=== PATIENT | male | born 1945 | race Caucasian/White ===

== ENCOUNTER 2016-09-04 | Outpatient (CLI) | payer MEDICARE, MEDICAID | END 2016-09-04 09:50 | disposition critical access hospital (66) | CPT/HCPCS: A0425; A0427 ==

== ENCOUNTER 2016-09-04 10:06 | Emergency (ER) | payer MEDICARE, MEDICAID ==
[2016-09-04] MEDS ORDERED: oxyCODONE 5 MG TABLET PO STA (10:13)
[2016-09-04] MEDS ORDERED: oxyCODONE 5 MG TABLET ONE (10:19)
== END 2016-09-04 14:23 | disposition home or self-care (01) ==
DX: M25.571 Pain in right ankle and joints of right foot (principal); M1A.0711 Idiopathic chronic gout, right ankle and foot, with tophus (tophi); E11.9 Type 2 diabetes mellitus without complications; I10 Essential (primary) hypertension; F17.200 Nicotine dependence, unspecified, uncomplicated; Z79.82 Long term (current) use of aspirin; Z66 Do not resuscitate
CPT/HCPCS: 73610; 73630; 93971; 99283; A9270

== ENCOUNTER 2016-09-09 | Outpatient (CLI) | payer MEDICARE, MEDICAID | END 2016-09-09 14:04 | disposition critical access hospital (66) | CPT/HCPCS: A0425; A0429 ==

== ENCOUNTER 2016-09-09 14:21 | Inpatient (IN) | payer MEDICARE, MEDICAID ==
[2016-09-09] MEDS ORDERED: FUROSEMIDE 20 MG/2 ML VIAL IVP STA (14:46)
[2016-09-09] MEDS ORDERED: FUROSEMIDE 20 MG/2 ML VIAL IVP ONE (15:07)
[2016-09-09] MEDS ORDERED: LORazepam 2 MG/ML SYRINGE IVP STA (15:58)
[2016-09-09] MEDS ORDERED: LORazepam 2 MG/ML SYRINGE ONE (16:06)
[2016-09-09] MEDS ORDERED: ONDANSETRON ODT 4 MG TABLET TL PRN (16:48)
[2016-09-09] MEDS ORDERED: ACETAMINOPHEN 500 MG TABLET PO PRN (16:48)
[2016-09-09] MEDS ORDERED: oxyCODONE 5 MG TABLET PO SCH (17:00)
[2016-09-09] MEDS: SODIUM CHLORIDE 0.9% 1,000 ML IV SCH (17:48)
[2016-09-09] MEDS: SODIUM CHLORIDE FLUSH 0.9% 10 ML SYRINGE IVP SCH (17:51)
[2016-09-09] MEDS: PANTOPRAZOLE 40 MG VIAL IVP SCH (18:03)
[2016-09-09] MEDS ORDERED: SODIUM CHLORIDE INHALATION 3 ML NEB INH PRN (18:36)
[2016-09-09] MEDS ORDERED: traMADol 50 MG TABLET PO SCH (21:00)
[2016-09-09] MEDS ORDERED: LEVALBUTEROL 1.25 MG INH PRN (21:19)
[2016-09-09] MEDS ORDERED: LEVALBUTEROL 1.25 MG INH SCH (22:00)
[2016-09-09] MEDS ORDERED: LORazepam 0.5 MG TABLET PO SCH (22:00)
[2016-09-09] MEDS: TOLTERODINE LA 2 MG CAPSULE PO SCH (22:24)
[2016-09-09] MEDS: cloNIDine 0.1 MG TABLET PO SCH (22:24)
[2016-09-09] MEDS: HYDROcod/ACETAM 5/325 MG TABLET PO SCH (22:25)
[2016-09-10] MEDS ORDERED: SODIUM CHLORIDE 0.9% 250 ML IV ONE (00:25)
[2016-09-10] MEDS: oxyCODONE 5 MG TABLET PO PRN ×2 (00:30→16:29)
[2016-09-10] MEDS: SODIUM CHLORIDE FLUSH 0.9% 10 ML SYRINGE IVP SCH ×3 (06:11→22:39)
[2016-09-10] MEDS: PANTOPRAZOLE 40 MG VIAL IVP SCH ×2 (06:22→16:29)
[2016-09-10] MEDS: HYDROmorphone 1 MG/ML SYRINGE IVP PRN ×4 (06:22→23:00)
[2016-09-10] MEDS: SODIUM CHLORIDE FLUSH 0.9% 10 ML SYRINGE IVP PRN ×4 (06:22→23:02)
[2016-09-10] MEDS: HYDROcod/ACETAM 5/325 MG TABLET PO SCH ×3 (08:22→22:34)
[2016-09-10] MEDS: POLYETHYLENE GLYCOL 3350 17 GM PACKET PO SCH ×2 (08:24→08:34)
[2016-09-10] MEDS: cloNIDine 0.1 MG TABLET PO SCH ×3 (08:25→22:34)
[2016-09-10] MEDS ORDERED: METOPROLOL TARTRATE 50 MG TABLET PO SCH (09:00)
[2016-09-10] MEDS ORDERED: POTASSIUM CHLORIDE 10 MEQ CAPSULE PO SCH (09:00)
[2016-09-10] MEDS ORDERED: CITALOPRAM 10 MG TABLET PO SCH (09:00)
[2016-09-10] MEDS: SODIUM CHLORIDE 0.9% 1,000 ML IV SCH ×2 (10:01→22:34)
[2016-09-10] MEDS: SUCRALFATE 1 GM/10 ML UDC PO SCH ×2 (16:29→22:34)
[2016-09-10] MEDS ORDERED: BISACODYL 10 MG SUPP PR ONE ×2 (17:41→21:09)
[2016-09-10] MEDS: TOLTERODINE LA 2 MG CAPSULE PO SCH ×2 (21:32→22:35)
[2016-09-11] MEDS: HYDROmorphone 1 MG/ML SYRINGE IVP PRN ×2 (01:09→04:08)
[2016-09-11] MEDS ORDERED: HEPARIN 5,000 UNIT/ML VIAL IVP ONE (02:01)
[2016-09-11] MEDS ORDERED: HEPARIN 25,000 UNITS/500 ML 500 ML IV STA (02:01)
[2016-09-11] MEDS ORDERED: HEPARIN 5,000 UNIT/ML VIAL IVP SCH (02:30)
[2016-09-11] MEDS ORDERED: HEPARIN 25,000 UNITS/500 ML 500 ML IV SCH ×2 (03:00)
== END 2016-09-11 04:20 | disposition short-term general hospital (02) | DRG 812 ==
PROC: 30233N1 Transfusion of Nonautologous Red Blood Cells into Peripheral Vein, Percutaneous Approach (ICD-10-PCS; principal; 2016-09-09)
PROC: 30233N1 Transfusion of Nonautologous Red Blood Cells into Peripheral Vein, Percutaneous Approach (ICD-10-PCS; 2016-09-10)
DX: D50.0 Iron deficiency anemia secondary to blood loss (chronic) (principal); K92.2 Gastrointestinal hemorrhage, unspecified; E87.1 Hypo-osmolality and hyponatremia; N17.9 Acute kidney failure, unspecified; I11.0 Hypertensive heart disease with heart failure; I50.9 Heart failure, unspecified; F32.9 Major depressive disorder, single episode, unspecified; I77.9 Disorder of arteries and arterioles, unspecified; I83.019 Varicose veins of right lower extremity with ulcer of unspecified site; L97.919 Non-pressure chronic ulcer of unspecified part of right lower leg with unspecified severity; I87.2 Venous insufficiency (chronic) (peripheral); I10 Essential (primary) hypertension; E66.01 Morbid (severe) obesity due to excess calories; F17.210 Nicotine dependence, cigarettes, uncomplicated; E11.9 Type 2 diabetes mellitus without complications; Z79.82 Long term (current) use of aspirin; Z68.41 Body mass index [BMI] 40.0-44.9, adult; J44.9 Chronic obstructive pulmonary disease, unspecified; E78.5 Hyperlipidemia, unspecified; M10.9 Gout, unspecified; Z66 Do not resuscitate

== ENCOUNTER 2016-09-18 | Outpatient (CLI) | payer MEDICARE, MEDICAID | END 2016-09-18 11:04 | disposition short-term general hospital (02) | CPT/HCPCS: A0425; A0429; A0888 ==

== ENCOUNTER 2020-12-09 07:00 | Outpatient (CLI) | payer MEDICARE, MEDICAID ==
[2020-12-09 15:26] LABS: BASOPHILS # (AUTO) 0.1 10^3/uL (0.0-0.1); BASOPHILS % (AUTO) 0.9 %; EOSINOPHILS # (AUTO) 0.3 10^3/uL (0.0-0.7); HCT - HEMATOCRIT 46.6 % (42.0-52.0); LYMPHOCYTES # (AUTO) 1.7 10^3/uL (1.5-3.5); LYMPHOCYTES % (AUTO) 31.8 %; MEAN CORPUSCULAR HEMOGLOBIN 30.7 pg (27.0-31.0); MEAN CORPUSCULAR HGB CONC 32.2 g/dL (32.0-36.0); MEAN CORPUSCULAR VOLUME 95.5 fL (80.0-94.0); MEAN PLATELET VOLUME 12.2 fL (7.4-11.4); MONOCYTES # (AUTO) 0.4 10^3/uL (0.0-1.0); NEUTROPHILS # (AUTO) 2.8 10^3/uL (1.5-6.6); NEUTROPHILS % (AUTO) 53.1 %; PLT - PLATELET COUNT 251 10^3/uL (130-450); RED BLOOD COUNT 4.88 10^6/uL (4.70-6.10); RED CELL DISTRIBUTION WIDTH 13.9 % (12.0-15.0); WHITE BLOOD COUNT 5.4 x10^3/uL (4.8-10.8)
[2020-12-09 15:45] LABS: CALCIUM 9.7 mg/dL (8.5-10.3); CREATININE 0.7 mg/dL (0.6-1.2); POTASSIUM 3.3 mmol/L (3.5-5.0)
== END 2020-12-09 23:59 | disposition home or self-care (01) ==
LOC: LAB.R 07:00
DX: I10 Essential (primary) hypertension (principal); E78.49 Other hyperlipidemia; F32.9 Major depressive disorder, single episode, unspecified; D50.8 Other iron deficiency anemias
CPT/HCPCS: 80048; 85025

== ENCOUNTER 2021-01-15 14:41 | Outpatient (CLI) | payer MEDICARE, MEDICAID ==
[2021-01-15 15:02] LABS: CALCIUM 9.2 mg/dL (8.5-10.3); CREATININE 0.7 mg/dL (0.6-1.2); POTASSIUM 3.5 mmol/L (3.5-5.0)
== END 2021-01-15 14:42 | disposition home or self-care (01) ==
LOC: LAB.R 14:41
PROVIDERS: ATTEND Family Medicine
DX: E78.49 Other hyperlipidemia (principal); D50.8 Other iron deficiency anemias; E87.6 Hypokalemia
CPT/HCPCS: 80048

== ENCOUNTER → 2021-05-20 | Outpatient (CLI) | payer MEDICARE, MEDICAID ==
[2021-05-20 15:44] LABS: BASOPHILS # (AUTO) 0.1 10^3/uL (0.0-0.1); BASOPHILS % (AUTO) 1.1 %; EOSINOPHILS # (AUTO) 0.4 10^3/uL (0.0-0.7); EOSINOPHILS % (AUTO) 7.8 %; HCT - HEMATOCRIT 43.5 % (42.0-52.0); HGB - HEMOGLOBIN 13.8 g/dL (14.0-18.0); LYMPHOCYTES # (AUTO) 1.6 10^3/uL (1.5-3.5); LYMPHOCYTES % (AUTO) 28.9 %; MEAN CORPUSCULAR HEMOGLOBIN 30.1 pg (27.0-31.0); MEAN CORPUSCULAR HGB CONC 31.7 g/dL (32.0-36.0); MEAN CORPUSCULAR VOLUME 94.8 fL (80.0-94.0); MEAN PLATELET VOLUME 11.8 fL (7.4-11.4); MONOCYTES # (AUTO) 0.5 10^3/uL (0.0-1.0); MONOCYTES % (AUTO) 8.3 %; NEUTROPHILS % (AUTO) 53.7 %; PLT - PLATELET COUNT 223 10^3/uL (130-450); RED BLOOD COUNT 4.59 10^6/uL (4.70-6.10); RED CELL DISTRIBUTION WIDTH 13.5 % (12.0-15.0); WHITE BLOOD COUNT 5.6 x10^3/uL (4.8-10.8)
[2021-05-20 15:46] LABS: BILIRUBIN,URINE NEGATIVE (NEGATIVE); GLUCOSE, URINE (UA) NEGATIVE (NEGATIVE); KETONES,URINE (UA) NEGATIVE (NEGATIVE); LEUKOCYTE ESTERASE, URINE NEGATIVE (NEGATIVE); NITRITE,URINE NEGATIVE (NEGATIVE); OCCULT BLOOD,URINE NEGATIVE (NEGATIVE); PROTEIN,URINE NEGATIVE (NEGATIVE); UROBILINOGEN,URINE 0.2 (NORMAL) E.U./dL (NORMAL)
[2021-05-20 15:49] LABS: CLARITY,URINE CLEAR (CLEAR)
[2021-05-20 15:59] LABS: ALBUMIN 3.9 g/dL (3.2-5.5); ALBUMIN/GLOBULIN RATIO 1.4 (1.0-2.2); BILIRUBIN,TOTAL 0.4 mg/dL (0.2-1.0); CALCIUM 8.6 mg/dL (8.5-10.3); CREATININE 0.8 mg/dL (0.6-1.2); POTASSIUM 3.7 mmol/L (3.5-5.0); TOTAL PROTEIN 6.6 g/dL (6.7-8.2)
== END ==
LOC: LAB.R 07:00
PROVIDERS: ATTEND Family Medicine
DX: E87.6 Hypokalemia (principal); E78.49 Other hyperlipidemia; R56.9 Unspecified convulsions; D50.8 Other iron deficiency anemias; I10 Essential (primary) hypertension; N12 Tubulo-interstitial nephritis, not specified as acute or chronic
CPT/HCPCS: 80053; 81001; 81003; 85025; 87086

== ENCOUNTER 2022-03-12 09:53 | Outpatient (CLI) | payer MEDICARE, MEDICAID | END 2022-03-12 09:54 | disposition critical access hospital (66) | LOC: EMS 09:53 | DX: R29.810 Facial weakness (principal); R40.4 Transient alteration of awareness | CPT/HCPCS: A0425; A0427 ==

== ENCOUNTER 2022-03-12 09:59 | Inpatient (IN) | payer MEDICARE, MEDICAID ==
[2022-03-12 10:15] LABS: BASOPHILS # (AUTO) 0.1 10^3/uL (0.0-0.1); BASOPHILS % (AUTO) 0.6 %; EOSINOPHILS # (AUTO) 0.8 10^3/uL (0.0-0.7); EOSINOPHILS % (AUTO) 8.7 %; HCT - HEMATOCRIT 44.6 % (42.0-52.0); HGB - HEMOGLOBIN 13.9 g/dL (14.0-18.0); LYMPHOCYTES # (AUTO) 1.9 10^3/uL (1.5-3.5); LYMPHOCYTES % (AUTO) 20.4 %; MEAN CORPUSCULAR HEMOGLOBIN 29.7 pg (27.0-31.0); MEAN CORPUSCULAR HGB CONC 31.2 g/dL (32.0-36.0); MEAN CORPUSCULAR VOLUME 95.3 fL (80.0-94.0); MEAN PLATELET VOLUME 11.1 fL (7.4-11.4); MONOCYTES # (AUTO) 0.7 10^3/uL (0.0-1.0); MONOCYTES % (AUTO) 6.8 %; NEUTROPHILS # (AUTO) 5.9 10^3/uL (1.5-6.6); NEUTROPHILS % (AUTO) 62.8 %; PLT - PLATELET COUNT 305 10^3/uL (130-450); RED BLOOD COUNT 4.68 10^6/uL (4.70-6.10); RED CELL DISTRIBUTION WIDTH 13.5 % (12.0-15.0); WHITE BLOOD COUNT 9.5 x10^3/uL (4.8-10.8)
[2022-03-12 10:31] LABS: ALBUMIN 3.7 g/dL (3.2-5.5); BILIRUBIN,TOTAL 0.6 mg/dL (0.2-1.0); CALCIUM 9.8 mg/dL (8.5-10.3); CREATININE 1.9 mg/dL (0.6-1.2); MAGNESIUM 2.1 mg/dL (1.7-2.8); TOTAL PROTEIN 7.5 g/dL (6.7-8.2)
--- NOTE | 2022-03-12 10:38 | CT Report ---
PROCEDURE: CT brain without contrast INDICATIONS: Code stroke/altered/R sided weakness TECHNIQUE: Noncontrast 4.5 mm thick angled axial sections acquired from the foramen magnum to the vertex. For r adiation dose reduction, the following was used: automated exposure control, adjustment of mA and/or kV according to patient size. COMPARISON: None. FINDINGS: Image quality: Excellent. CSF spaces: Basal cisterns are patent. No extra-axial fluid collections. Ventricles are normal in size and shape. Brain: Cystic encephalomalacia and gliosis noted throughout the left MCA territory. Diffuse atrophy a nd chronic ischemic change noted as well. There is dense atherosclerotic vascular calcification invol ving the intradural vertebral arteries, particularly on the left as well as the cavernous segments of both internal carotid arteries. No acute hemorrhage or mass effect. Skull and face: Calvarium and visualized facial bones are intact, without suspicious lesions. Sinuses: Air-fluid level noted in the left maxillary sinus IMPRESSION: 1. Atrophy and chronic ischemic change without acute hemorrhage or mass effect. 2. 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 3. Air-fluid level left maxillary sinus could reflect acute sinusitis. Note: Critical results were discussed with patients physician in the ER at 9:36 AM AK time on 03/12/20 Reviewed by: Didier Tao MD on 03/12/2022 9:37 AM AKDT Approved by: Didier Tao MD on 03/12/2022 9:37 AM AKDT Station ID: [id number]
[2022-03-12 10:40] LABS: INR 1.1 (0.8-1.2); PT - PROTHROMBIN TIME 12.6 secs (9.9-12.6)
--- NOTE | 2022-03-12 10:47 | ED Physician Documentation ---
PD HPI ALTERED MENTAL STATUS - Stated complaint Stated Complaint: AMS - Chief complaint Chief Complaint: Neuro - History obtained from History obtained from: EMS - Additional information Additional information: Patient is a 76-year-old male with a previous stroke and bilateral BKA presenting for evaluation of altered mental status, possible code stroke. He was last seen at his normal around 9:00 this morning.Sometime thereafter, staff noted that he was not acting at his baseline and appeared to have new weakness. He normally will answer questions but nonsensically. He does have hemiparesis to the right. He was noted to have left-sided facial droop and new left arm weakness.Per EMS, blood sugar was 108. Patient resides at [facility] in [place]. History is limited. He is not reportedly on a blood thinner. He reportedly recently finished a course of antibiotics - EMS was told he was on it for gout. Review of Systems Unable to obtain: AMS PD PAST MEDICAL HISTORY - Past Medical History Cardiovascular: Hypertension, High cholesterol Respiratory: Pneumonia Endocrine/Autoimmune: Type 2 diabetes GI: None : None HEENT: None Psych: None Musculoskeletal: None Derm: None - Past Surgical History Past Surgical History: Yes General: Appendectomy Ortho: Other HEENT: Tonsil/Adenoidectomy - Present Medications Home Medications: Ambulatory Orders Medication Instructions Recorded Confirmed Citalopram [CeleXA] 20 mg PO QPM 10/02/15 09/09/16 LORazepam [Lorazepam] 0.5 mg PO DAILY PRN 10/02/15 09/09/16 Metoprolol Tartrate 50 mg PO DAILY 10/02/15 09/09/16 Solifenacin Succinate [Vesicare] 10 mg PO QPM 10/02/15 09/09/16 lisinopriL [Lisinopril] 40 mg PO DAILY 10/02/15 09/09/16 Acetaminophen [Tylenol Extra 500 mg PO QID PRN 08/10/16 09/09/16 Strength] Aspirin [Aspirin EC] 81 mg PO DAILY 08/10/16 09/09/16 Atorvastatin [Lipitor] 20 mg PO DAILY 08/10/16 09/09/16 Colchicine 0.6 mg PO TID PRN 08/10/16 09/09/16 Furosemide [Lasix] 60 mg PO DAILY 08/10/16 09/09/16 Omeprazole [PriLOSEC] 20 mg PO BID 08/10/16 09/09/16 Potassium Chloride 10 meq PO DAILY 08/10/16 09/09/16 allopurinoL [Allopurinol] 300 mg PO DAILY 08/10/16 09/09/16 Furosemide 60 mg PO DAILY@1400 09/09/16 09/09/16 Hydrocodone/Acetaminophen 1 each PO BID 09/09/16 09/09/16 [Hydrocodon-Acetaminophen 5-325] cloNIDine HCL [Clonidine HCl] 0.1 mg PO BID 09/09/16 09/09/16 metOLazone [Metolazone] 5 mg PO 0700,1200 09/09/16 09/09/16 oxyCODONE [Roxicodone] 5 mg PO Q4HR PRN 09/09/16 09/09/16 - Allergies Allergies/Adverse Reactions: Allergies Allergy/AdvReac Type Severity Reaction Status Date / Time gabapentin Allergy Unknown Verified 03/12/22 10:26 - Social History Does the pt smoke?: Yes Smoking Status: Current every day smoker Does the pt drink ETOH?: No Does the pt have substance abuse?: No - Immunizations Immunizations are current?: Yes - POLST Patient has POLST: No PD ED PE NORMAL - General General: Well developed/nourished, Other (No acute distress, appears older than stated age, opens eyes to verbal but not following commands or answering questions) - HEENT HEENT: Atraumatic, PERRL. No: Moist mucous membranes (Dry mucous membranes) - Neck Neck: No bony TTP - Cardiac Cardiac: RRR, No murmur, Strong equal pulses - Respiratory Respiratory: No respiratory distress, Other (Diminished breath sounds throughout) - Abdomen Abdomen: Normal bowel sounds, Soft, Non tender, Non distended - Extremities Extremities: Other (Bilateral BKA) - Neuro Neuro: Other (Alert, mumbles, not following commands, Weak application support developer To left, Not able to raise any extremities off the bed, ) Results - Vitals Vitals: Vital Signs - 24 hr 03/12/22 03/12/22 03/12/22 09:59 10:32 10:49 Temperature 36.3 C L Heart Rate 75 71 63 Respiratory 17 16 15 Rate Blood Pressure 159/79 H 148/82 H 148/82 H O2 Saturation 92 95 95 07/16/22 07/16/22 07/16/22 12:14 12:30 13:00 Temperature 36.5 C 36.5 C Heart Rate 64 67 65 Respiratory 14 12 12 Rate Blood Pressure 124/61 123/84 H 120/80 O2 Saturation 96 96 96 03/12/22 03/12/22 03/12/22 13:30 14:00 14:30 Temperature Heart Rate 71 66 62 Respiratory 14 14 14 Rate Blood Pressure 169/77 H 160/69 H 132/59 H O2 Saturation 99 96 94 03/12/22 03/12/22 03/12/22 15:00 15:38 16:00 Temperature Heart Rate 70 67 67 Respiratory 20 17 16 Rate Blood Pressure 179/76 H 179/99 H 179/99 H O2 Saturation 96 96 96 03/12/22 03/12/22 03/12/22 16:30 17:00 17:30 Temperature 36.5 C 36.5 C Heart Rate 65 71 70 Respiratory 16 14 22 Rate Blood Pressure 180/80 H 180/70 H 180/85 H O2 Saturation 95 96 95 03/12/22 03/12/22 03/12/22 18:00 18:49 19:00 Temperature Heart Rate 78 76 73 Respiratory 24 18 18 Rate Blood Pressure 180/80 H 178/84 H 180/70 H O2 Saturation 97 94 95 Oxygen O2 Source Room air Oxygen Flow Rate 2 - EKG (time done) 1048 Rate: Rate (enter#) (62) Rhythm: NSR Intervals: LBBB Ischemia: No: ST elevation c/w ischemia, ST depression, T wave inversion - Labs Labs: Laboratory Tests 03/12/22 03/12/22 03/12/22 10:08 10:08 10:08 WBC 9.5 RBC 4.68 L Hgb 13.9 L Hct 44.6 MCV 95.3 H MCH 29.7 MCHC 31.2 L RDW 13.5 Plt Count 305 MPV 11.1 Neut # (Auto) 5.9 Lymph # (Auto) 1.9 [place] # (Auto) 0.7 Eos # (Auto) 0.8 H Baso # (Auto) 0.1 Absolute Nucleated RBC 0.00 Nucleated RBC % 0.0 PT 12.6 INR 1.1 Sodium 146 H Potassium 5.0 Chloride 107 Carbon Dioxide 25 Anion Gap 14.0 H BUN 51 H Creatinine 1.9 H Estimated GFR (MDRD) 35 L Glucose 108 H Lactic Acid Calcium 9.8 Magnesium 2.1 Total Bilirubin 0.6 AST 15 ALT 21 Alkaline Phosphatase 63 Troponin I High Sens B-Natriuretic Peptide Total Protein 7.5 Albumin 3.7 Globulin 3.8 Albumin/Globulin Ratio 1.0 Lipase 24 Urine Color Urine Clarity Urine pH Ur Specific [place] Urine Protein Urine Glucose (UA) Urine Ketones Urine Occult Blood Urine Nitrite Urine Bilirubin Urine Urobilinogen Ur Leukocyte Esterase Ur Microscopic Review Urine Culture Comments SARS-CoV-2 (PCR) Blood Type Antibody Screen 03/12/22 03/12/22 03/12/22 10:08 10:08 10:40 WBC RBC Hgb Hct MCV MCH MCHC RDW Plt Count MPV Neut # (Auto) Lymph # (Auto) [place] # (Auto) Eos # (Auto) Baso # (Auto) Absolute Nucleated RBC Nucleated RBC % PT INR Sodium Potassium Chloride Carbon Dioxide Anion Gap BUN Creatinine Estimated GFR (MDRD) Glucose Lactic Acid 1.0 Calcium Magnesium Total Bilirubin AST ALT Alkaline Phosphatase Troponin I High Sens 7.8 B-Natriuretic Peptide 12 Total Protein Albumin Globulin Albumin/Globulin Ratio Lipase Urine Color Urine Clarity Urine pH Ur Specific [place] Urine Protein Urine Glucose (UA) Urine Ketones Urine Occult Blood Urine Nitrite Urine Bilirubin Urine Urobilinogen Ur Leukocyte Esterase Ur Microscopic Review Urine Culture Comments SARS-CoV-2 (PCR) Blood Type Antibody Screen 03/12/22 03/12/22 03/12/22 10:40 10:49 13:00 WBC RBC Hgb Hct MCV MCH MCHC RDW Plt Count MPV Neut # (Auto) Lymph # (Auto) [place] # (Auto) Eos # (Auto) Baso # (Auto) Absolute Nucleated RBC Nucleated RBC % PT INR Sodium Potassium Chloride Carbon Dioxide Anion Gap BUN Creatinine Estimated GFR (MDRD) Glucose Lactic Acid Calcium Magnesium Total Bilirubin AST ALT Alkaline Phosphatase Troponin I High Sens B-Natriuretic Peptide Total Protein Albumin Globulin Albumin/Globulin Ratio Lipase Urine Color YELLOW Urine Clarity CLEAR Urine pH 5.5 Ur Specific [place] 1.020 Urine Protein NEGATIVE Urine Glucose (UA) NEGATIVE Urine Ketones NEGATIVE Urine Occult Blood NEGATIVE Urine Nitrite NEGATIVE Urine Bilirubin NEGATIVE Urine Urobilinogen 0.2 (NORMAL) Ur Leukocyte Esterase NEGATIVE Ur Microscopic Review NOT INDICATED Urine Culture Comments NOT INDICATED SARS-CoV-2 (PCR) NOT DETECTED Blood Type O POSITIVE Antibody Screen NEGATIVE PD MEDICAL DECISION MAKING - ED course Complexity details: re-evaluated patient ED course: Patient with right-sided hemiparesis and bilateral BKA's presenting with new onset left upper extremity weakness and altered mental status.EMS report indicated that last known normal was this morning so code stroke was initiated. Patient was not a tPA candidate given large distribution of previous stroke and not a candidate for neuro intervention based on baseline immobility. He does not appear to be septic. Concern for acute CVA given new weakness of LUE. 1057 - Per Dr. Williamson (telestroke) - Patient would not be a tPA candidate given Large previous stroke as seen on CT brain. He recommends holding on CT angios head and neck at this time as he would not be candidate For neuro intervention given his baseline bedbound status with already known hemiplegia.He recommends continuing aspirin. He recommends obtaining an MRI when available, aware that MRI is not available at this facility until Monday. Patient admitted to hospitalist service [facility] with concerns for acute CVA. 1457 - Patient does not have admit orders yet. Patient with stable vital signs. Opens eyes to verbal. No other change in exam. Departure - Departure Disposition: 66 [facility] DC/Xfer Clinical Impression: Stroke-like symptoms Altered mental status Qualifiers: Altered mental status type: unspecified Qualified Code(s): R41.82 - Altered mental status, unspecified Condition: Serious Discharge Date/Time: 03/12/22 19:48
[2022-03-12] MEDS ORDERED: ASPIRIN 300 MG SUPP PR STA (11:37)
--- NOTE | 2022-03-12 11:50 | XRAY Report ---
PROCEDURE: Chest 1 View X-Ray INDICATIONS: AMS TECHNIQUE: One view of the chest was acquired. COMPARISON: None FINDINGS: Surgical changes and devices: None. Lungs and pleura: No pleural effusions or pneumothorax. Lungs are clear. Mediastinum: Mediastinal contours appear normal. Heart size is normal. Sclerotic calcification note d in the aortic arch Bones and chest wall: No suspicious bony lesions. Overlying soft tissues appear unremarkable. Old healed right-sided rib fractures IMPRESSION: No acute cardiopulmonary findings Reviewed by: Didier Tao MD on 03/12/2022 10:49 AM JUAN Approved by: Didier Tao MD on 03/12/2022 10:49 AM JUAN Station ID: [id number]
[2022-03-12 13:14] LABS: BILIRUBIN,URINE NEGATIVE (NEGATIVE); GLUCOSE, URINE (UA) NEGATIVE (NEGATIVE); KETONES,URINE (UA) NEGATIVE (NEGATIVE); LEUKOCYTE ESTERASE, URINE NEGATIVE (NEGATIVE); NITRITE,URINE NEGATIVE (NEGATIVE); OCCULT BLOOD,URINE NEGATIVE (NEGATIVE); PH,URINE 5.5 PH (5.0-7.5); PROTEIN,URINE NEGATIVE (NEGATIVE); UROBILINOGEN,URINE 0.2 (NORMAL) E.U./dL (NORMAL)
[2022-03-12 13:19] LABS: CLARITY,URINE CLEAR (CLEAR)
[2022-03-12] MEDS ORDERED: SODIUM CHLORIDE FLUSH 0.9% 10 ML SYRINGE IVP PRN (19:23)
[2022-03-12] MEDS ORDERED: ONDANSETRON 4 MG/2 ML VIAL IVP PRN (19:23)
--- NOTE | 2022-03-12 19:32 | HISTORY & PHYSICAL EXAMINATION ---
Chief Complaint - Chief Complaint Chief Complaint: altered mental status History of Present Illness - History of Present Illness HPI Comment/Other: "Patient is a 76-year-old male with a previous stroke and bilateral BKA presenting for evaluation of altered mental status, possible code stroke. He was last seen at his normal around 9:00 this morning.Sometime thereafter, staff noted that he was not acting at his baseline and appeared to have new weakness. He normally will answer questions but nonsensically. He does have hemiparesis to the right. He was noted to have left-sided facial droop and new left arm weakness.Per EMS, blood sugar was 108. Patient resides at [facility] in [place]. History is limited. He is not reportedly on a blood thinner. He reportedly recently finished a course of antibiotics - EMS was told he was on it for gout." HPI above is obtained from the ED providers H&P Because the patient is unable to provide a history. This is likely due to his strokes. At bedside he appears comfortable. He does not respond to questions asked though awake and alert. Right hemiparesis noted. Bilateral BKA noted. History - Past Medical History Cardiovascular: reports: Hypertension, High cholesterol Respiratory: reports: Pneumonia Endocrine/Autoimmune: reports: Type 2 diabetes GI: reports: None : reports: None HEENT: reports: None Psych: reports: None Musculoskeletal: reports: None Derm: reports: None MRSA Hx?: No - Past Surgical History General: reports: Appendectomy Ortho: reports: Other (Bilateral BKA, Right Hip Replacement) HEENT: reports: Tonsil/Adenoidectomy - Family & Social History Family History Comment/Other: Previous records indicate patient's father from an MVA at age 54. His mother from cardiac disease at age 73. He has 1 brother and 2 sisters. 1 from unknown type of cancer. Social History Notes: Patient currently resides at [facility]. In the past he smoked 1 pack of cigarettes daily for at least 50 years. He quit drinki ng alcohol a long time ago but drank heavily for 20 to 25 years. - POLST Patient has POLST: No POLST Status: DNR Meds/Allgy - Home Medications Home Medications: Ambulatory Orders Medication Instructions Recorded Confirmed Citalopram [CeleXA] 20 mg PO QPM 10/02/09/09/16 LORazepam [Lorazepam] 0.5 mg PO DAILY PRN 10/02/15 09/09/16 Metoprolol Tartrate 50 mg PO DAILY 10/02/15 09/09/16 Solifenacin Succinate [Vesicare] 10 mg PO QPM 10/02/15 09/09/16 lisinopriL [Lisinopril] 40 mg PO DAILY 10/02/15 09/09/16 Acetaminophen [Tylenol Extra 500 mg PO QID PRN 08/10/16 09/09/16 Strength] Aspirin [Aspirin EC] 81 mg PO DAILY 08/10/16 09/09/16 Atorvastatin [Lipitor] 20 mg PO DAILY 08/10/16 09/09/16 Colchicine 0.6 mg PO TID PRN 08/10/16 09/09/16 Furosemide [Lasix] 60 mg PO DAILY 08/10/16 09/09/16 Omeprazole [PriLOSEC] 20 mg PO BID 08/10/16 09/09/16 Potassium Chloride 10 meq PO DAILY 08/10/16 09/09/16 allopurinoL [Allopurinol] 300 mg PO DAILY 08/10/16 09/09/16 Furosemide 60 mg PO DAILY@1400 09/09/16 09/09/16 Hydrocodone/Acetaminophen 1 each PO BID 09/09/16 09/09/16 [Hydrocodon-Acetaminophen 5-325] cloNIDine HCL [Clonidine HCl] 0.1 mg PO BID 09/09/16 09/09/16 metOLazone [Metolazone] 5 mg PO 0700,1200 09/09/16 09/09/16 oxyCODONE [Roxicodone] 5 mg PO Q4HR PRN 09/09/16 09/09/16 - Allergies Allergies/Adverse Reactions: Allergies Allergy/AdvReac Type Severity Reaction Status Date / Time gabapentin Allergy Unknown Verified 03/12/22 10:26 Review of Systems - Other Findings Other Findings: The 12 point review of system is limited because the patient is nonverbal though awake and alert. Prior Level of Functionality: Patient is dependent for activities of daily living. He has bilateral BKA and right hemiparesis from CVA. He resides at [facility]. Exam - Vital Signs Vital Signs: Vital Signs x48h Temp Pulse Resp BP Pulse Ox 03/12/22 19:00 73 18 180/70 H 95 03/12/22 18:49 76 18 178/84 H 94 03/12/22 18:00 78 24 180/80 H 97 03/12/22 17:30 70 22 180/85 H 95 03/12/22 17:00 36.5 C 71 14 180/70 H 96 03/12/22 16:30 36.5 C 65 16 180/80 H 95 03/12/22 16:00 67 16 179/99 H 96 03/12/22 15:38 67 17 179/99 H 96 03/12/22 15:00 70 20 179/76 H 96 03/12/22 14:30 62 14 132/59 H 94 03/12/22 14:00 66 14 160/69 H 96 03/12/22 13:30 71 14 169/77 H 99 03/12/22 13:00 65 12 120/80 96 03/12/22 12:30 36.5 C 67 12 123/84 H 96 03/12/22 12:14 36.5 C 64 14 124/61 96 - Physical Exam General Appearance: positive: No acute distress, Alert Eyes Bilateral: positive: PERRL, EOMI ENT: positive: No signs of dehydration Neck: positive: No JVD, Trachea midline Respiratory: positive: Chest non-tender, No respiratory distress, Breath sounds nml. negative: Wheezes, Rales, Rhonchi Cardiovascular: positive: Regular rate & rhythm Abdomen: positive: Non-tender, No organomegaly, Nml bowel sounds, No distention. negative: Guarding, Rebound Neurologic/Psychiatric: positive: Other (right hemiparesis, not communicative though awake and alert) Conclusion/Plan - Problem List (1) Stroke-like symptoms Conclusion/Plan: CT brain without contrast was negative for any acute intracranial process or mass-effect. Atrophy and chronic ischemic changes were noted. Large old left MCA infarct noted. Per the directions of the teleneurologist tPA was not given and CT angio head and neck was not done. Will obtain an MRI when available. Neurochecks every shift. We will check lipid panel and hemoglobin A1c in the a.m. Patient was given 300 mg per rectum aspirin suppository. Will allow permissive hypertension and treat for systolic blood pressure greater than 180 with hydralazine IV. (2) Hypertension Conclusion/Plan: Patient is normally on metoprolol succinate 25 mg p.o. daily. We will hold for now while allowing permissive hypertension. Hydralazine 10 mg IV every 4 hours as needed ordered for systolic blood pressure greater than 180. (3) Diabetes mellitus Conclusion/Plan: Not on any medication. We will check hemoglobin A1c in the morning. Qualifiers: Diabetes mellitus type: type 2 (5) Neuropathy Conclusion/Plan: Lyrica 100mg po bid (6) Depression Conclusion/Plan: Duloxetine 30 mg p.o. daily. - Lab Results Fish Bones: 03/12/22 10:08 03/12/22 10:08 Core Measures - Anticipated LOS I expect patient to be DC'd or transferred within 96 hours.: Yes - DVT/VTE - Prophylaxis Not Ordered - Medical Reason: Not tolerated (bilateral bka)
[2022-03-12] MEDS ORDERED: SODIUM CHLORIDE 0.9% 1,000 ML IV SCH (20:00)
[2022-03-12] MEDS: DEXTROSE 5%-0.45% NACL 1,000 ML IV SCH (20:23)
[2022-03-12] MEDS ORDERED: hydrALAZINE INJ 20 MG/ML VIAL IVP PRN (22:22)
[2022-03-13 06:03] LABS: BASOPHILS # (AUTO) 0.1 10^3/uL (0.0-0.1); BASOPHILS % (AUTO) 0.9 %; EOSINOPHILS # (AUTO) 0.2 10^3/uL (0.0-0.7); EOSINOPHILS % (AUTO) 2.6 %; HCT - HEMATOCRIT 42.4 % (42.0-52.0); HGB - HEMOGLOBIN 13.6 g/dL (14.0-18.0); LYMPHOCYTES # (AUTO) 1.4 10^3/uL (1.5-3.5); LYMPHOCYTES % (AUTO) 16.3 %; MEAN CORPUSCULAR HEMOGLOBIN 29.8 pg (27.0-31.0); MEAN CORPUSCULAR HGB CONC 32.1 g/dL (32.0-36.0); MONOCYTES # (AUTO) 0.6 10^3/uL (0.0-1.0); MONOCYTES % (AUTO) 6.9 %; NEUTROPHILS # (AUTO) 6.4 10^3/uL (1.5-6.6); NEUTROPHILS % (AUTO) 72.5 %; PLT - PLATELET COUNT 280 10^3/uL (130-450); RED BLOOD COUNT 4.56 10^6/uL (4.70-6.10); RED CELL DISTRIBUTION WIDTH 13.3 % (12.0-15.0); WHITE BLOOD COUNT 8.8 x10^3/uL (4.8-10.8)
[2022-03-13 06:06] LABS: CALCIUM 9.3 mg/dL (8.5-10.3); CREATININE 1.1 mg/dL (0.6-1.2); POTASSIUM 4.1 mmol/L (3.5-5.0)
[2022-03-13 06:15] LABS: CHOL/HDL RATIO 5.7 (<5.0); CHOLESTEROL 183 mg/dL; HDL CHOLESTEROL 32 mg/dL; LDL CHOLESTEROL,CALCULATED 120 mg/dL; LDL/HDL RATIO 3.8 (<3.6); TRIGLYCERIDES 155 mg/dL; VLDL CHOLESTEROL 31 mg/dL
[2022-03-13 06:29] LABS: PLATELET ESTIMATE, MANUAL NORMAL (130-450,000) (NORMAL)
[2022-03-13] MEDS: SODIUM CHLORIDE FLUSH 0.9% 10 ML SYRINGE IVP SCH ×3 (07:53→16:02)
[2022-03-13] MEDS: DEXTROSE 5%-0.45% NACL 1,000 ML IV SCH (08:17)
[2022-03-13] MEDS: ASPIRIN EC 81 MG TABLET PO SCH (08:22)
[2022-03-13] MEDS: DULoxetine 30 MG CAPSULE PO SCH (08:22)
--- NOTE | 2022-03-13 09:32 | PHARMACY PROGRESS NOTE ---
- Best Possible Medication History Admit Date and Time: 03/12/221922 Processed by: Pharmacy Medication History completed: Yes Patient Interview: Pt unable to participate Secondary Source(s): Facility MAR as ONLY source As the person ultimately responsible for medication therapy, providers are able to order a medication from an existing home medication list in [facility] via the "Reconcile Routine" prior to Confirmation of that medication by marketing support assistant. Such practice is discouraged except when the physician, in their clinical judgment, deems that a medical need exists for a medication without regard to previous use.
[2022-03-13] MEDS ORDERED: ZINC OXIDE 20% OINT 30 GM TUBE TOP PRN (12:02)
[2022-03-13 18:48] LABS: ESTIMATED AVERAGE GLUCOSE 117 mg/dL (70-100); HEMOGLOBIN A1c% 5.7 % (4.27-6.07)
[2022-03-13] MEDS ORDERED: LORazepam 0.5 MG TABLET PO PRN (19:11)
--- NOTE | 2022-03-13 19:14 | PROVIDER PROGRESS NOTE ---
Assessment/Plan - Problem List (1) Stroke-like symptoms Assessment/Plan: More alert today Active use of left upper extremity Will repeat CT brain or do MRI brain on 03/14/22 Atorvastatin 40 mg p.o. every afternoon Baby aspirin daily. Metoprolol succinate 25 mg p.o. daily. Hydralazine 10 mg IV every 4 hours as needed for systolic blood pressure greater than 160. (2) Hypertension Assessment/Plan: Metoprolol succinate 25 mg p.o. daily. Hydralazine 10 mg IV every 4 hours as needed for systolic blood pressure greater than 160. (3) Diabetes mellitus Qualifiers: Diabetes mellitus type: type 2 Assessment/Plan: Not on any diabetic medication. Hemoglobin A1c today was 5.7. (4) Hyperlipidemia Assessment/Plan: Atorvastatin 40 mg p.o. every afternoon (5) Neuropathy Assessment/Plan: Lyrica 100mg po bid (6) Depression Assessment/Plan: Duloxetine 30 mg p.o. daily. - Current Meds Current Meds: Current Medications Generic Name Dose Route Start Last Admin Trade Name Shruti PRN Reason Stop Dose Admin Aspirin 81 mg 03/13/22 09:00 03/13/22 08:22 Aspirin Ec 81 Mg Tablet PO 81 mg DAILY CAROL Administration Duloxetine HCl 30 mg 03/13/22 08:15 03/13/22 08:22 Duloxetine 30 Mg Capsule PO 30 mg DAILY CAROL Administration Hydralazine HCl 10 mg 03/12/22 22:22 03/12/22 22:32 Hydralazine Inj 20 Mg/Ml Vial IVP 10 mg Q4H PRN Administration PER PHYSICIAN ORDER Dextrose/Sodium Chloride 1,000 mls @ 83.333 mls/hr 03/12/22 20:00 03/13/22 16:03 D5.45ns IV 83.33 mls/hr .Q12H CAROL Infusion Multi-Ingredient Ointment 1 applic 03/13/22 12:02 03/13/22 13:47 Zinc Oxide 20% Oint 30 Gm Tube TOP 1 applic PRN PRN Administration Skin Care Sodium Chloride 10 ml 03/13/22 01:00 03/13/22 16:02 Sodium Chloride Flush 0.9% 10 Ml Syringe IVP 10 ml 0100,0900,1700 CAROL Administration - Lab Result Fish Bone Diagrams: 03/13/22 05:30 03/13/22 05:30 - Additional Planning My Orders: My Active Orders 03/12/22 19:23 Activity Orders [RC] Q2HR IO [RC] IOSHIFT Initiate Bowel Care Protocol [RC] .protocol Initiate Line Care Protocol [RC] QSHIFT Initiate Personal Care Protoco [RC] .protocol Oxygen Therapy [RC] .PRN Vital Signs [RC] 0800,1600,0000 Ondansetron Inj [Zofran Inj] 4 mg IVP Q6HR PRN Sodium Chloride Flush 0.9% [Normal Saline Flush 0.9%] 10 ml IVP PRN PRN Code Status [OTHERS] Routine Condition of Patient [OTHERS] Routine DVT Prophylaxis [OTHERS] Routine 03/12/22 19:27 Evaluate and Treat OT [OT] Routine Evaluate and Treat PT [PT] Routine 03/12/22 19:31 Neuro Check [RC] QSHIFT 03/12/22 20:00 Dextrose 5%-0.45% NaCl [D5.45ns] 1,000 ml IV 83.333 mls/hr 03/12/22 22:22 hydrALAZINE INJ [Apresoline Inj] 10 mg IVP Q4H PRN 03/13/22 01:00 Sodium Chloride Flush 0.9% [Normal Saline Flush 0.9%] 10 ml IVP 0100,0900,1700 03/13/22 05:30 HEMOGLOBIN A1c% [CHEM] DAILYLAB 03/13/22 08:15 DULoxetine [Cymbalta] 30 mg PO DAILY 03/13/22 09:00 Aspirin EC [Ecotrin] 81 mg PO DAILY 03/13/22 12:02 Zinc Oxide 20% Oint [Zinc Oxide] 1 applic TOP PRN PRN 03/13/22 19:11 LORazepam [Ativan] 0.5 mg PO QPM PRN 03/13/22 21:00 Atorvastatin [Lipitor] 40 mg PO QPM Docusate Sodium 100Mg Capsule [Colace 100Mg Capsule] 100 mg PO BID Latanoprost 0.005% Ophth Drops [Xalatan Ophth Drops] 1 drops EACHEYE QPM Loratadine [Claritin] 10 mg PO QPM Pregabalin [Lyrica] 100 mg PO BID 03/13/22 22:00 Baclofen [Lioresal] 10 mg PO TID Ibuprofen [Motrin] 600 mg PO TID Methadone HCl [Methadone HCl] 10 mg PO TID 03/14/22 05:00 BMP - BASIC METABOLIC PANEL [CHEM] DAILYLAB CBC - COMP BLD CT W/AUTO DIFF [HEME] DAILYLAB 03/14/22 09:00 Furosemide [Lasix] 20 mg PO DAILY Metoprolol Succinate [Toprol Xl] 25 mg PO DAILY Potassium Chloride [Micro-K] 20 meq PO DAILY 03/15/22 05:00 BMP - BASIC METABOLIC PANEL [CHEM] DAILYLAB CBC - COMP BLD CT W/AUTO DIFF [HEME] DAILYLAB 03/16/22 05:00 BMP - BASIC METABOLIC PANEL [CHEM] DAILYLAB CBC - COMP BLD CT W/AUTO DIFF [HEME] DAILYLAB 03/17/22 05:00 BMP - BASIC METABOLIC PANEL [CHEM] DAILYLAB CBC - COMP BLD CT W/AUTO DIFF [HEME] DAILYLAB Subjective - Subjective Patient Reports: Other (Is more awake and alert today. However he is not able to speak. He mainly mumbles. He has good use of his left upper extremity. He readily extended his hand for handshake. He was able to eat and drink through a straw when fed. He did not appear to be in any discomfort.) Objective Vital Signs: Vital Signs - 24 hr 03/12/22 03/12/22 03/12/22 20:05 22:32 22:37 Temperature 37.2 C Heart Rate [ 73 Monitoring electrodes] Respiratory 20 Rate Blood Pressure 182/69 H Blood Pressure 193/100 H 172/65 H [Left Brachial artery] O2 Saturation 94 03/12/22 03/12/22 03/13/22 22:53 23:02 00:45 Temperature 36.7 C Heart Rate [ 93 Monitoring electrodes] Respiratory 18 Rate Blood Pressure 155/60 H Blood Pressure 155/60 H 178/75 H [Left Brachial artery] O2 Saturation 95 03/13/22 03/13/22 03/13/22 04:56 07:30 16:00 Temperature 37.0 C 37.0 C 37.0 C Heart Rate [ 90 91 76 Monitoring electrodes] Respiratory 20 18 23 Rate Blood Pressure Blood Pressure 156/55 H 152/68 H [Left Brachial artery] O2 Saturation 94 94 93 Oxygen O2 Source Room air Oxygen Flow Rate 2 I&O (Last 24 Hrs): Intake and Output Totals x24h 03/11/22 03/12/2203/13/22 23:59 23:59 23:59 Intake Total 1453.050 Balance 1453.050 General: Alert, No acute distress, Other (Mainly mumbles) HEENT: PERRLA, EOMI Neck: Supple, No JVD Neuro: Alert, Other (right hemiparesis. contracture of right hand) Cardiovascular: Regular rate Respiratory: Chest non-tender, No respiratory distress, Breath sounds nml Extremities: No edema, Other (bilateral BKA) Skin: No rashes - Results Results: Laboratory Results WBC 8.8 x10^3/uL (4.8-10.8) 03/13/22 05:30 RBC 4.56 10^6/uL (4.70-6.10) L 03/13/22 05:30 Hgb 13.6 g/dL (14.0-18.0) L 03/13/22 05:30 Hct 42.4 % (42.0-52.0) 03/13/22 05:30 MCV 93.0 fL (80.0-94.0) 03/13/22 05:30 MCH 29.8 pg (27.0-31.0) 03/13/22 05:30 MCHC 32.1 g/dL (32.0-36.0) 03/13/22 05:30 RDW 13.3 % (12.0-15.0) 03/13/22 05:30 Plt Count 280 10^3/uL (130-450) 03/13/22 05:30 MPV 12.0 fL (7.4-11.4) H 03/13/22 05:30 Neut # (Auto) 6.4 10^3/uL (1.5-6.6) 03/13/22 05:30 Lymph # (Auto) 1.4 10^3/uL (1.5-3.5) L 03/13/22 05:30 [place] # (Auto) 0.6 10^3/uL (0.0-1.0) 03/13/22 05:30 Eos # (Auto) 0.2 10^3/uL (0.0-0.7) 03/13/22 05:30 Baso # (Auto) 0.1 10^3/uL (0.0-0.1) 03/13/22 05:30 Absolute Nucleated RBC 0.00 x10^3/uL 03/13/22 05:30 Nucleated RBC % 0.0 /100WBC 03/13/22 05:30 Platelet Estimate NORMAL (130-450,000) (NORMAL) 03/13/22 05:30 PT 12.6 secs (9.9-12.6) 03/12/22 10:08 INR 1.1 (0.8-1.2) 03/12/22 10:08 Sodium 144 mmol/L (135-145) 03/13/22 05:30 Potassium 4.1 mmol/L (3.5-5.0) 03/13/22 05:30 Chloride 109 mmol/L (101-111) 03/13/22 05:30 Carbon Dioxide 26 mmol/L (21-32) 03/13/22 05:30 Anion Gap 9.0 (6-13) 03/13/22 05:30 BUN 39 mg/dL (6-20) H 03/13/22 05:30 Creatinine 1.1 mg/dL (0.6-1.2) 03/13/22 05:30 Estimated GFR (MDRD) 65 (>89) L 03/13/22 05:30 Glucose 166 mg/dL (70-100) H 03/13/22 05:30 Lactic Acid 1.0 mmol/L (0.5-2.2) 03/12/22 10:40 Calcium 9.3 mg/dL (8.5-10.3) 03/13/22 05:30 Magnesium 2.1 mg/dL (1.7-2.8) 03/12/22 10:08 Total Bilirubin 0.6 mg/dL (0.2-1.0) 03/12/22 10:08 AST 15 IU/L (10-42) 03/12/22 10:08 ALT 21 IU/L (10-60) 03/12/22 10:08 Alkaline Phosphatase 63 IU/L (42-121) 03/12/22 10:08 Troponin I High Sens 7.8 ng/L (2.3-19.7) 03/12/22 10:08 B-Natriuretic Peptide 12 pg/mL (5-100) 03/12/22 10:08 Total Protein 7.5 g/dL (6.7-8.2) 03/12/22 10:08 Albumin 3.7 g/dL (3.2-5.5) 03/12/22 10:08 Globulin 3.8 g/dL (2.1-4.2) 03/12/22 10:08 Albumin/Globulin Ratio 1.0 (1.0-2.2) 03/12/22 10:08 Triglycerides 155 mg/dL (-149) H 03/13/22 05:30 Cholesterol 183 mg/dL (-199) 03/13/22 05:30 LDL Cholesterol, Calc 120 mg/dL (-129) 03/13/22 05:30 VLDL Cholesterol 31 mg/dL 03/13/22 05:30 HDL Cholesterol 32 mg/dL (60-) L 03/13/22 05:30 LDL/HDL Ratio 3.8 (<3.6) 03/13/22 05:30 Cholesterol/HDL Ratio 5.7 (<5.0) 03/13/22 05:30 Lipase 24 U/L (22-51) 03/12/22 10:08 Urine Color YELLOW 03/12/22 13:00 Urine Clarity CLEAR (CLEAR) 03/12/22 13:00 Urine pH 5.5 PH (5.0-7.5) 03/12/22 13:00 Ur Specific [place] 1.020 (1.002-1.030) 03/12/22 13:00 Urine Protein NEGATIVE mg/dL (NEGATIVE) 03/12/22 13:00 Urine Glucose (UA) NEGATIVE mg/dL (NEGATIVE) 03/12/22 13:00 Urine Ketones NEGATIVE mg/dL (NEGATIVE) 03/12/22 13:00 Urine Occult Blood NEGATIVE (NEGATIVE) 03/12/22 13:00 Urine Nitrite NEGATIVE (NEGATIVE) 03/12/22 13:00 Urine Bilirubin NEGATIVE (NEGATIVE) 03/12/22 13:00 Urine Urobilinogen 0.2 (NORMAL) E.U./dL (NORMAL) 03/12/22 13:00 Ur Leukocyte Esterase NEGATIVE (NEGATIVE) 03/12/22 13:00 Ur Microscopic Review NOT INDICATED 03/12/22 13:00 Urine Culture Comments NOT INDICATED 03/12/22 13:00 SARS-CoV-2 (PCR) NOT DETECTED 03/12/22 10:49 Blood Type O POSITIVE 03/12/22 10:40 Antibody Screen NEGATIVE 03/12/22 10:40 - Procedures Procedures: Procedures TRANSFUSE NONAUT RED BLOOD CELLS IN PERIPH VEIN, PERC (09/10/16) ABX Reporting Has patient been on IV antibiotics over the past 48 hours?: No
[2022-03-13] MEDS ORDERED: LATANOPROST 0.005% OPHTH DROPS EACHEYE SCH (21:00)
[2022-03-13] MEDS ORDERED: LORATADINE 10 MG TABLET PO SCH (21:00)
[2022-03-13] MEDS ORDERED: ATORVASTATIN 40 MG TABLET PO SCH (21:00)
[2022-03-13] MEDS: DOCUSATE SODIUM 100 MG CAPSULE PO SCH (21:58)
[2022-03-13] MEDS: METHADONE 5 MG TABLET PO SCH (21:58)
[2022-03-13] MEDS: IBUPROFEN 600 MG TABLET PO SCH (21:58)
[2022-03-13] MEDS: BACLOFEN 10 MG TABLET PO SCH (21:58)
[2022-03-13] MEDS: PREGABALIN 100 MG CAPSULE PO SCH (21:58)
[2022-03-14] MEDS: SODIUM CHLORIDE FLUSH 0.9% 10 ML SYRINGE IVP SCH ×2 (00:43→09:03)
[2022-03-14 05:40] LABS: BASOPHILS # (AUTO) 0.1 10^3/uL (0.0-0.1); BASOPHILS % (AUTO) 0.8 %; EOSINOPHILS # (AUTO) 0.4 10^3/uL (0.0-0.7); EOSINOPHILS % (AUTO) 4.9 %; HCT - HEMATOCRIT 41.8 % (42.0-52.0); HGB - HEMOGLOBIN 13.2 g/dL (14.0-18.0); LYMPHOCYTES # (AUTO) 1.9 10^3/uL (1.5-3.5); LYMPHOCYTES % (AUTO) 26.8 %; MEAN CORPUSCULAR HEMOGLOBIN 29.6 pg (27.0-31.0); MEAN CORPUSCULAR HGB CONC 31.6 g/dL (32.0-36.0); MEAN CORPUSCULAR VOLUME 93.7 fL (80.0-94.0); MEAN PLATELET VOLUME 10.9 fL (7.4-11.4); MONOCYTES # (AUTO) 0.6 10^3/uL (0.0-1.0); MONOCYTES % (AUTO) 7.8 %; NEUTROPHILS # (AUTO) 4.2 10^3/uL (1.5-6.6); NEUTROPHILS % (AUTO) 58.9 %; PLT - PLATELET COUNT 252 10^3/uL (130-450); RED BLOOD COUNT 4.46 10^6/uL (4.70-6.10); RED CELL DISTRIBUTION WIDTH 13.2 % (12.0-15.0); WHITE BLOOD COUNT 7.1 x10^3/uL (4.8-10.8)
[2022-03-14] MEDS: IBUPROFEN 600 MG TABLET PO SCH ×2 (05:49→13:45)
[2022-03-14] MEDS: BACLOFEN 10 MG TABLET PO SCH ×2 (05:50→13:45)
[2022-03-14] MEDS: METHADONE 5 MG TABLET PO SCH ×2 (05:51→13:45)
[2022-03-14 05:56] LABS: CREATININE 0.8 mg/dL (0.6-1.2); POTASSIUM 3.4 mmol/L (3.5-5.0)
[2022-03-14 07:52] VITALS: BP 131/67
[2022-03-14] MEDS ORDERED: POTASSIUM CHLORIDE 10 MEQ CAPSULE PO SCH (09:00)
[2022-03-14] MEDS ORDERED: METOPROLOL SUCCINATE 25 MG TABLET PO SCH (09:00)
[2022-03-14] MEDS ORDERED: FUROSEMIDE 20 MG TABLET PO SCH (09:00)
[2022-03-14] MEDS: ASPIRIN EC 81 MG TABLET PO SCH (09:03)
[2022-03-14] MEDS: DOCUSATE SODIUM 100 MG CAPSULE PO SCH (09:03)
[2022-03-14] MEDS: DULoxetine 30 MG CAPSULE PO SCH (09:03)
[2022-03-14] MEDS: PREGABALIN 100 MG CAPSULE PO SCH (09:03)
--- NOTE | 2022-03-14 12:39 | Discharge Plan ---
"Discharge Plan for SNF / [facility] - Discharge Plan And Transition Orders Problem Reviewed?: Yes Disposition: 03 SNF DC/Xfer Condition: Stable Allergies and Adverse Reactions: Allergies Allergy/AdvReac Type Severity Reaction Status Date / Time gabapentin Allergy Unknown Verified 03/12/22 10:26 Health Concerns: Patient was admitted with stroke-like symptoms which included no verbal communication and could not use his left arm. There is a history of right-sided paralysis from several old strokes and he has bilateral AKAs. His work-up in the ED included CT of the head that showed the old strokes. A neurology consultation was done with the telestroke taxation consultant. He did not qualify to get intervention or tPA therefore no CT angios of the brain or neck were done. His left arm weakness started to improve after several hours. By the following day he was able to use the left arm and could pull off all his telemetry leads. On the day of discharge he was feeding himself with the left arm, following directions and communicating with grunting, which appears to be his baseline. He was transferred back to [facility]. Plan of Treatment: Resume all previous pre-hospital medications and management. Take 1 baby aspirin daily, if there are no contra-indications. Care Goals: Improvement in symptoms and stabilization are the goals. Assessment: These orders are provided for his Usp. - SNF / [facility] Transition Orders Admit to (Facility): [facility] Under the care of (Name): Norman Doss MD Discharge Diagnosis: (1) TIA Symptoms have resolved and he is back to his baseline. 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 It is unclear why there is no daily aspirin on his med list. A baby aspirin daily is advised, if there are no contra-indications. (3) Bilateral AKAs (4) Hypertension (5) Diabetes mellitus His A1c was 5.7. He is not on Diabetic meds but unclear why he is not on a diabetic diet (?) (6) Hypertriglyceridemia His fasting lipid panel showed a Triglyceride level of 155 and low HDL, consistent with being a Diabetic. (7) Neuropathy (8) Depression (9) Morbid obesity, BMI 62 Medicare Certification Statement: I certify that Post Hospital half-way care is medically necessary on a continuing basis for any of the conditions for which she/he is receiving care during hospitalization. Notify PCP of admission and forward orders to primary provider for signature. Weight on admission and: Weekly Call PCP immediately if weight increases by: 5 kg Other Notification Orders: Call PCP immediately if patient develops dyspnea, chest pain/tightness or edema. House Bowel Program: Yes Additional Bowel Program Orders: If no BM after 2 days, nurse may give M.O.M. 30ml PO PRN and/or ducolax Supp 1 VT and/or GURMEET 250mg P.O., and/or senna 1-2 tabs PO. On day 3 nurse may give repeat above order until residents constipation is resolved. Annual Influenza Vaccine (between Apr 28 and November 25): Yes Two-step PPD per [facility] [phone] or approved exception documents: Yes Medication Orders: PLEASE REFER TO THE DISCHARGE MEDICATION LIST. Insulin Orders?: No - Medications New Prescriptions: Aspirin EC [Ecotrin] 81 mg PO DAILY #30 tablet - Diet Type: No added sugar Texture: Puree Liquids: [place] thick May have monthly special meal: Yes - Therapies | Activity Rehabilitation Potential: Maintain present ADL Functional Weight Bearing: No Weight Follow Up: Next PCP visit as per routine."
--- NOTE | 2022-03-14 12:47 | DISCHARGE SUMMARY ---
Discharge Summary Admit Date: 03/12/22 Discharge Date: 03/14/22 Discharging Provider: Dr Zulma Payan Primary Care Provider: Dr Norman Doss Code Status: Do Not Attempt Resuscitation Condition at Discharge: Stable Discharge Disposition: 03 SNF DC/Xfer - HPI History of Present Illness: From the admission H&P of Dr. Karli Sheikhu: Patient is a 76-year-old male with a previous stroke and bilateral AKA presenting for evaluation of altered mental status, possible code stroke. He was last seen at his normal around 9:00 this morning, 2 hours before ED pre sentation. Sometime thereafter, staff noted that he was not acting at his baseline and appeared to have new weakness. He normally will answer questions but nonsensically. He does have hemiparesis to the right. He was noted to have left-sided facial droop and new left arm weakness. Per EMS, blood sugar was 108. Patient resides at [facility] in [place]. History is limited. He is not reportedly on a blood thinner. He reportedly recently finished a course of antibiotics - EMS was told he was on it for gout." HPI above is obtained from the ED provider's H&P Because the patient is unable to provide a history. This is likely due to his strokes. At bedside he appears comfortable. He does not respond to questions asked though he is awake and alert. Right hemiparesis noted. L arm weakness is noted. Bilateral AKA noted. - CONSULTS | PROCEDURES Consultations: TeleStroke - HOSPITAL COURSE Hospital Course: (1) TIA Patient was admitted with stroke-like symptoms which included no verbal communication and could not use his left arm. There is a history of right-sided paralysis from several old strokes and he normally speaks by grunting. His work- up in the ED included CT of the head that showed the large old L MCA territory stroke. In the ED, a neurology consultation was done with the telestroke transportation sales consultant. The patient did not qualify to get intervention or tPA, therefore no CT angios of the brain or neck were done. His left arm weakness started to improve after several hours. By the following day he was able to use the left arm and could pull off all his telemetry leads. He did not undergo carotid ev aluation since he is not a candidate for intervention. He did not have an Echocardiogram since we do not have the Echo service here on the 2.5 days he was here. On the day of discharge, he was feeding himself with the left arm, following directions and communicating with grunting, which appears to be his baseline. He was transferred back to [facility]. 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 It is unclear why there is no daily aspirin on his med list. A baby aspirin daily was advised, if there are no contra-indications. (3) Bilateral AKAs As per Hx and he does not get OOB, as per Hx from [facility]. (4) Hypertension His usual medications were continued. (5) Diabetes mellitus His A1c was 5.7. He is not on Diabetic meds but unclear why he is not on a low- sugar. (6) Hypertriglyceridemia His fasting lipid panel showed a Triglyceride level of 155 and low HDL of 32, consistent with being a Diabetic. (7) Neuropathy His usual medications were continued. (8) Depression His usual medications were continued. (9) Morbid obesity, BMI 62 As per Hx. - ALLERGIES Allergies/Adverse Reactions: Allergies Allergy/AdvReac Type Severity Reaction Status Date / Time gabapentin Allergy Unknown Verified 03/12/22 10:26 - MEDICATIONS Home Medications: Ambulatory Orders Medication Instructions Recorded Confirmed LORazepam [Lorazepam] 0.5 mg PO QPM PRN 10/02/15 03/13/22 Furosemide [Lasix] 20 mg PO DAILY 08/10/16 03/13/22 Potassium Chloride 20 meq PO DAILY 08/10/16 03/13/22 Baclofen [Lioresal] 10 mg PO TID 03/13/22 03/13/22 DULoxetine [Cymbalta] 30 mg PO DAILY 03/13/22 03/13/22 Docusate Sodium [Dulcolax Stool 100 mg PO BID 03/13/22 03/13/22 Softener] Ibuprofen [Motrin] 600 mg PO TID 03/13/22 03/13/22 Latanoprost 0.005% Ophth Drops 1 drops EACHEYE QPM 03/13/22 03/13/22 [Xalatan Ophth Drops] Loratadine [Claritin] 10 mg PO QPM 03/13/22 03/13/22 Methadone HCl 10 mg PO TID 03/13/22 03/13/22 Metoprolol Succinate [Toprol Xl] 25 mg PO DAILY 03/13/22 03/13/22 Pregabalin [Lyrica] 100 mg PO BID 03/13/22 03/13/22 Aspirin EC [Ecotrin] 81 mg PO DAILY #30 tablet 03/14/22 Zinc Oxide 20% Oint [Zinc Oxide] 1 applic TOP PRN PRN 03/14/22 - PHYSICAL EXAM AT DISCHARGE General Appearance: positive: No acute distress, Alert, Other (Male pattern baldness. Morbidly obese.) Eyes Bilateral: positive: Normal inspection ENT: positive: ENT inspection nml, No signs of dehydration Neck: positive: Nml inspection, Other (Obese and cannot evaluate JVP) Respiratory: positive: No respiratory distress Cardiovascular: positive: Regular rate & rhythm Abdomen: positive: Non-tender, Other (Obese with a pannus) Skin: positive: Warm, Dry Extremities: positive: Other (Bilateral AKAs) Neurologic/Psychiatric: positive: Other (He is using his left arm without difficulty. The right arm and right leg stump are paralyzed. He speaks by grunting. He follows directions.) - LABS Result Diagrams: 03/14/22 05:33 03/14/22 05:33 - DIAGNOSTIC IMAGING Diagnostic Imaging Results: Final report reviewed - FOLLOW UP Follow Up: See PCP in routine follow-up. - TIME SPENT Time Spent in Discharge (Minutes): 60
== END 2022-03-14 14:30 | DRG 69 ==
LOC: EDUNIT# → ED 09:59 → MS2 19:23
PROVIDERS: ADMIT Internal Medicine; ATTEND Internal Medicine
DX: R41.82 Altered mental status, unspecified (principal); G45.9 Transient cerebral ischemic attack, unspecified; I69.351 Hemiplegia and hemiparesis following cerebral infarction affecting right dominant side; E78.00 Pure hypercholesterolemia, unspecified; E11.9 Type 2 diabetes mellitus without complications; F17.200 Nicotine dependence, unspecified, uncomplicated; I44.7 Left bundle-branch block, unspecified; Z20.822 Contact with and (suspected) exposure to COVID-19; Z74.01 Bed confinement status; Z79.82 Long term (current) use of aspirin; Z68.44 Body mass index [BMI] 60.0-69.9, adult; G83.24 Monoplegia of upper limb affecting left nondominant side; R29.810 Facial weakness; R53.1 Weakness; E11.40 Type 2 diabetes mellitus with diabetic neuropathy, unspecified; E66.01 Morbid (severe) obesity due to excess calories; E78.1 Pure hyperglyceridemia; E78.5 Hyperlipidemia, unspecified; I10 Essential (primary) hypertension; F32.A Depression, unspecified; Z66 Do not resuscitate; Z79.899 Other long term (current) drug therapy; Z88.8 Allergy status to other drugs, medicaments and biological substances; Z89.511 Acquired absence of right leg below knee; Z89.512 Acquired absence of left leg below knee
CPT/HCPCS: 36415; 51701; 70450; 71045; 80048; 80053; 80061; 81003; 83036; 83605; 83690; 83735; 83880; 84484; 85025; 85610; 86850; 86900; 86901; 87635; 93005; 97161; 97165; 99285; A9270; 81001; 83721; 87086

== ENCOUNTER 2022-03-14 14:35 | Outpatient (CLI) | payer MEDICARE, MEDICAID | END 2022-03-14 14:36 | disposition home or self-care (01) | LOC: EMS 14:35 | PROVIDERS: ATTEND Internal Medicine | DX: I69.351 Hemiplegia and hemiparesis following cerebral infarction affecting right dominant side (principal); Z89.612 Acquired absence of left leg above knee; Z89.611 Acquired absence of right leg above knee; Z74.01 Bed confinement status; R41.82 Altered mental status, unspecified | CPT/HCPCS: A0425; A0428 ==

== ENCOUNTER 2022-08-04 12:24 | Outpatient (CLI) | payer MEDICARE, MEDICAID ==
[2022-08-04 13:04] LABS: ALBUMIN 3.5 g/dL (3.2-5.5); ALBUMIN/GLOBULIN RATIO 1.2 (1.0-2.2); BILIRUBIN,TOTAL 0.4 mg/dL (0.2-1.0); CALCIUM 8.8 mg/dL (8.5-10.3); CREATININE 0.7 mg/dL (0.6-1.2); POTASSIUM 3.3 mmol/L (3.5-5.0); TOTAL PROTEIN 6.5 g/dL (6.7-8.2)
== END 2022-08-04 12:25 | disposition home or self-care (01) ==
LOC: LAB.R 12:24
PROVIDERS: ATTEND Internal Medicine
DX: L29.9 Pruritus, unspecified (principal)
CPT/HCPCS: 80053

== ENCOUNTER 2023-04-03 11:01 | Outpatient (CLI) | payer MEDICARE, MEDICAID ==
--- NOTE | 2023-04-03 16:10 | XRAY Report ---
PROCEDURE: Chest 2 View X-Ray INDICATIONS: PNEUMONIA TECHNIQUE: 2 views of the chest were acquired. COMPARISON: Chest radiograph 03/12/2022 FINDINGS: Surgical changes and devices: None. Lungs and pleura: Evaluation is suboptimal due to patient positioning. The patient's head obscures t he lung apices on frontal view. A probable wheelchair or external device projects over the posterior lungs on lateral view. Mildly low lung volumes bilaterally. No focal pulmonary opacity is seen. No de finite pleural effusion or pneumothorax. Mediastinum: Mediastinal contours appear normal. Heart size is normal. Bones and chest wall: Moderate compression fracture is seen at the mid thoracic spine. Old healed ri ght-sided rib fractures. IMPRESSION: 1.Mildly low lung volumes and suboptimal positioning as described above. No acute cardiopulmonary abn ormality is seen. 2.Age-indeterminate mid thoracic spine compression fracture. Reviewed by: Jacinto Cornejo MD on 04/03/2023 4:09 PM PDT Approved by: Jacinto Cornejo MD on 04/03/2023 4:09 PM PDT Station ID: [id number]
== END 2023-04-03 11:02 | disposition home or self-care (01) ==
LOC: DI 11:01
PROVIDERS: ATTEND Registered Nurse
DX: R06.89 Other abnormalities of breathing (principal); M48.54XA Collapsed vertebra, not elsewhere classified, thoracic region, initial encounter for fracture

== ENCOUNTER 2023-04-17 14:23 | Outpatient (CLI) | payer MEDICARE, MEDICAID ==
[2023-04-17 14:57] LABS: ALBUMIN 3.6 g/dL (3.2-5.5); ALBUMIN/GLOBULIN RATIO 1.3 (1.0-2.2); BILIRUBIN,TOTAL 0.4 mg/dL (0.2-1.0); CALCIUM 8.8 mg/dL (8.5-10.3); CREATININE 0.6 mg/dL (0.6-1.3); POTASSIUM 3.7 mmol/L (3.5-4.5); TOTAL PROTEIN 6.3 g/dL (6.4-8.9)
== END 2023-04-17 14:24 | disposition home or self-care (01) ==
LOC: LAB.R 14:23
PROVIDERS: ATTEND Registered Nurse
DX: I10 Essential (primary) hypertension (principal); E56.8 Deficiency of other vitamins; D50.8 Other iron deficiency anemias
CPT/HCPCS: 80053; 85025

== ENCOUNTER 2023-07-05 08:00 | Outpatient (CLI) | payer MEDICARE, MEDICAID ==
[2023-07-05 16:42] LABS: CALCIUM 8.8 mg/dL (8.5-10.3); CREATININE 0.7 mg/dL (0.6-1.3); POTASSIUM 4.1 mmol/L (3.5-4.5)
== END 2023-07-05 23:59 | disposition home or self-care (01) ==
LOC: LAB.R 08:00
PROVIDERS: ATTEND Registered Nurse
DX: I73.9 Peripheral vascular disease, unspecified (principal)
CPT/HCPCS: 80048

== ENCOUNTER 2023-12-04 08:00 | Outpatient (CLI) | payer MEDICARE, MEDICAID ==
[2023-12-04 21:39] LABS: ALBUMIN 3.4 g/dL (3.2-5.5); ALBUMIN/GLOBULIN RATIO 1.1 (1.0-2.2); BILIRUBIN,TOTAL 0.3 mg/dL (0.2-1.0); CALCIUM 9.1 mg/dL (8.5-10.3); CREATININE 0.8 mg/dL (0.6-1.3); ESTIMATED AVERAGE GLUCOSE 97 mg/dL (70-100); POTASSIUM 4.9 mmol/L (3.5-4.5); TOTAL PROTEIN 6.4 g/dL (6.4-8.9)
== END 2023-12-04 23:59 | disposition home or self-care (01) ==
LOC: LAB.R 08:00
PROVIDERS: ATTEND Registered Nurse
DX: E11.65 Type 2 diabetes mellitus with hyperglycemia (principal); I10 Essential (primary) hypertension
CPT/HCPCS: 80053; 83036; 85025

== ENCOUNTER 2023-12-06 23:00 | Outpatient (CLI) | payer MEDICARE, MEDICAID | END 2023-12-06 23:01 | disposition home or self-care (01) | LOC: LAB.R 23:00 | PROVIDERS: ATTEND Registered Nurse | DX: I50.9 Heart failure, unspecified (principal) | CPT/HCPCS: 80053 ==

== ENCOUNTER 2023-12-07 13:06 | Outpatient (CLI) | payer MEDICARE, MEDICAID ==
[2023-12-07 13:26] LABS: ALBUMIN 3.3 g/dL (3.2-5.5); ALBUMIN/GLOBULIN RATIO 1.2 (1.0-2.2); BILIRUBIN,TOTAL 0.4 mg/dL (0.2-1.0); CALCIUM 8.9 mg/dL (8.5-10.3); CREATININE 0.8 mg/dL (0.6-1.3); POTASSIUM 3.8 mmol/L (3.5-4.5)
== END 2023-12-07 13:07 | disposition home or self-care (01) ==
LOC: LAB.R 13:06
PROVIDERS: ATTEND Registered Nurse
DX: I11.0 Hypertensive heart disease with heart failure (principal); I50.9 Heart failure, unspecified; E78.49 Other hyperlipidemia
CPT/HCPCS: 80053

== ENCOUNTER 2023-12-10 08:00 | Outpatient (CLI) | payer MEDICARE, MEDICAID ==
[2023-12-10 18:54] LABS: CALCIUM 9.2 mg/dL (8.5-10.3); CREATININE 0.8 mg/dL (0.6-1.3); POTASSIUM 4.1 mmol/L (3.5-4.5)
== END 2023-12-10 23:59 | disposition home or self-care (01) ==
LOC: LAB.R 08:00
PROVIDERS: ATTEND Registered Nurse
DX: G54.6 Phantom limb syndrome with pain (principal)
CPT/HCPCS: 80048

== ENCOUNTER 2023-12-13 09:33 | Outpatient (CLI) | payer MEDICARE, MEDICAID ==
--- NOTE | 2023-12-13 16:19 | XRAY Report ---
PROCEDURE: Chest 2V INDICATIONS: BREATHING DIFFICULTY TECHNIQUE: 2 views of the chest were acquired. COMPARISON: Chest x-ray 04/03/2023 FINDINGS: Surgical changes and devices: None. Lungs and pleura: No pleural effusions or pneumothorax. Lungs are clear. Mediastinum: Mediastinal contours appear normal. Heart size is normal. Bones and chest wall: No suspicious bony lesions. Overlying soft tissues appear unremarkable. IMPRESSION: No acute cardiopulmonary process. Reviewed by: Dominique Zamora MD on 12/13/2023 4:17 PM PDT Approved by: Dominique Zamora MD on 12/13/2023 4:17 PM PDT Station ID: [id number]
== END 2023-12-13 09:34 | disposition home or self-care (01) ==
LOC: DI 09:33
PROVIDERS: ATTEND Registered Nurse
DX: R06.89 Other abnormalities of breathing (principal)

== ENCOUNTER 2024-01-25 11:29 | Outpatient (CLI) | payer MEDICARE, MEDICAID ==
--- NOTE | 2024-01-25 13:13 | XRAY Report ---
PROCEDURE: Humerus RT INDICATIONS: RIGHT ARM PAIN TECHNIQUE: 2 views of the humerus were acquired. COMPARISON: None. FINDINGS: Bones: No fractures or dislocations. No suspicious bony lesions. Soft tissues: No suspicious soft tissue calcifications or masses. IMPRESSION: No visualized acute fracture or dislocation. However, occult injury cannot be excluded. Recommend sofy rt interval imaging follow-up in 7-10 days as clinically indicated for additional evaluation. Reviewed by: Dominique Zamora MD on 01/25/2024 1:12 PM PDT Approved by: Dominique Zamora MD on 01/25/2024 1:12 PM PDT Station ID: [id number]
--- NOTE | 2024-01-25 13:14 | XRAY Report ---
PROCEDURE: Forearm RT INDICATIONS: RIGHT ARM PAIN TECHNIQUE: 2 views of the forearm were acquired. COMPARISON: X-ray humerus 01/25/2024 FINDINGS: Bones: No fractures or dislocations. No suspicious bony lesions. Soft tissues: No suspicious soft tissue calcifications or masses. IMPRESSION: No visualized acute fracture or dislocation. However, occult injury cannot be excluded. Recommend sofy rt interval imaging follow-up in 7-10 days as clinically indicated for additional evaluation. Reviewed by: Dominique Zamora MD on 01/25/2024 1:12 PM PDT Approved by: Dominique Zamora MD on 01/25/2024 1:12 PM PDT Station ID: [id number]
== END 2024-01-25 11:30 | disposition home or self-care (01) ==
LOC: DI 11:29
DX: M62.421 Contracture of muscle, right upper arm (principal); M79.601 Pain in right arm

== ENCOUNTER 2024-02-04 08:00 | Outpatient (CLI) | payer MEDICARE, MEDICAID ==
[2024-02-04 13:36] LABS: CALCIUM 9.1 mg/dL (8.5-10.3); CREATININE 0.7 mg/dL (0.6-1.3)
== END 2024-02-04 23:59 | disposition home or self-care (01) ==
LOC: LAB.R 08:00
PROVIDERS: ATTEND Registered Nurse
DX: I10 Essential (primary) hypertension (principal)
CPT/HCPCS: 36415; 80048

== ENCOUNTER 2024-03-21 03:16 | Outpatient (CLI) | payer MEDICARE, MEDICAID | END 2024-03-21 23:59 | disposition critical access hospital (66) | LOC: EMS 03:16 | DX: K92.0 Hematemesis (principal); R10.812 Left upper quadrant abdominal tenderness | CPT/HCPCS: A0425; A0429 ==

== ENCOUNTER 2024-03-21 03:20 | Emergency (ER) | payer MEDICARE, MEDICAID ==
--- NOTE | 2024-03-21 03:40 | ED Physician Documentation ---
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 Further history limited by patient nonverbal at baseline PD PAST MEDICAL HISTORY - Past Medical History Past Medical History: Yes Cardiovascular: Hypertension, High cholesterol Respiratory: Pneumonia Neuro: CVA Endocrine/Autoimmune: Type 2 diabetes GI: None : None HEENT: None Psych: None Musculoskeletal: Hemiplegia Derm: None - Past Surgical History Past Surgical History: Yes General: Appendectomy Ortho: Other HEENT: Tonsil/Adenoidectomy - Present Medications Home Medications: Ambulatory Orders Medication Instructions Recorded Confirmed LORazepam [Lorazepam] 0.5 mg PO QPM PRN 10/02/15 03/13/22 Furosemide [Lasix] 20 mg PO DAILY 08/10/16 03/13/22 Potassium Chloride 20 meq PO DAILY 08/10/16 03/13/22 Baclofen [Lioresal] 10 mg PO TID 03/13/22 03/13/22 DULoxetine [Cymbalta] 30 mg PO DAILY 03/13/22 03/13/22 Docusate Sodium [Dulcolax Stool 100 mg PO BID 03/13/22 03/13/22 Softener] Ibuprofen [Motrin] 600 mg PO TID 03/13/22 03/13/22 Latanoprost 0.005% Ophth Drops 1 drops EACHEYE QPM 03/13/22 03/13/22 [Xalatan Ophth Drops] Loratadine [Claritin] 10 mg PO QPM 03/13/22 03/13/22 Methadone HCl 10 mg PO TID 03/13/22 03/13/22 Metoprolol Succinate [Toprol Xl] 25 mg PO DAILY 03/13/22 03/13/22 Pregabalin [Lyrica] 100 mg PO BID 03/13/22 03/13/22 Aspirin EC [Ecotrin] 81 mg PO DAILY #30 tablet 03/14/22 Zinc Oxide 20% Oint [Zinc Oxide] 1 applic TOP PRN PRN 03/14/22 - Allergies Allergies/Adverse Reactions: Allergies Allergy/AdvReac Type Severity Reaction Status Date / Time gabapentin Allergy Unknown Verified 03/12/22 10:26 - Social History Does the pt smoke?: No Smoking Status: Never smoker Does the pt drink ETOH?: No Does the pt have substance abuse?: No - Immunizations Immunizations are current?: Yes - POLST Patient has POLST: No POLST Status: DNR PD ED PE NORMAL - Vitals Vital signs reviewed: Yes - General General: No acute distress, Well developed/nourished, Other (alert, lying in bed, nonverbal at baseline) - HEENT HEENT: Atraumatic, PERRL, EOMI - Neck Neck: Supple, no meningeal sign - Cardiac Cardiac: RRR - Respiratory Respiratory: No respiratory distress, Clear bilaterally - Abdomen Abdomen: Non tender, Non distended, No organomegaly - Back Back: No CVA TTP - Derm Derm: Normal color, Warm and dry - Neuro Neuro: No motor deficit, No sensory deficit Eye Opening: Spontaneous Motor: Obeys Commands Verbal: None GCS Score: 11 Results - Vitals Vitals: Vital Signs - 24 hr 03/21/24 03/21/24 03:24 03:34 Temperature 36.6 C Heart Rate 78 76 Respiratory 20 18 Rate Blood Pressure 165/87 H 156/84 H O2 Saturation 95 95 Oxygen O2 Source Room air PD Medical Decision Making - ED course ED course: Patient was sent into the ED for further investigation however upon review of his POLST form it was determined that it is not within the patient's wishes to have extensive workup for medical conditions but rather to have comfort oriented care. This was discussed with and confirmed with [facility] staff and therefore antinausea medication was ordered but no further blood draws or testing was done per patient wishes. Sent home with nidia for [facility] staff to administer as needed. patient does not appear to have any pain therefore holding off on pain meds. plan to f/u pcp for referral to palliative care. Departure - Departure Disposition: 01 Home, Self Care Clinical Impression: Vomiting Condition: Stable Instructions: ED Nausea Vomiting Comments: You were seen in the emergency department for vomiting. Please plan to follow up with palliative care services in the morning. Given the POLST form with documentation of wishes for comfort measures only, we are providing zofran dissolving tablets and recommend close follow up with your doctor and with palliative care. Please follow-up with your primary care provider and return to the emergency department if you have any new or worsening symptoms or other concerns.
[2024-03-21] MEDS: ONDANSETRON ODT 4 MG Prepack 2 TL STA (03:51)
[2024-03-21] MEDS: ONDANSETRON ODT 4 MG TABLET TL STA (03:51)
[2024-03-21 04:19] VITALS: BP 175/75; O2SAT 99
== END 2024-03-21 04:17 | disposition home or self-care (01) ==
LOC: EDUNIT# → ED 03:20
DX: R11.2 Nausea with vomiting, unspecified (principal); Z66 Do not resuscitate; I69.920 Aphasia following unspecified cerebrovascular disease; E11.9 Type 2 diabetes mellitus without complications; I10 Essential (primary) hypertension; E78.00 Pure hypercholesterolemia, unspecified; K21.9 Gastro-esophageal reflux disease without esophagitis; Z79.899 Other long term (current) drug therapy; Z89.512 Acquired absence of left leg below knee; Z89.511 Acquired absence of right leg below knee
CPT/HCPCS: 99283; A9270; Q0162

== ENCOUNTER 2024-03-21 04:12 | Outpatient (CLI) | payer MEDICARE, MEDICAID | END 2024-03-21 23:59 | disposition home or self-care (01) | LOC: EMS 04:12 | PROVIDERS: ATTEND Emergency Medicine | DX: R11.10 Vomiting, unspecified (principal); R41.0 Disorientation, unspecified; Z74.01 Bed confinement status | CPT/HCPCS: A0425; A0428 ==

== ENCOUNTER 2024-03-22 08:00 | Outpatient (CLI) | payer MEDICARE, MEDICAID ==
[2024-03-22 23:03] LABS: CALCIUM 9.2 mg/dL (8.5-10.3); CREATININE 0.6 mg/dL (0.6-1.3); POTASSIUM 3.5 mmol/L (3.5-4.5)
== END 2024-03-22 23:59 | disposition home or self-care (01) ==
LOC: LAB.R 08:00
DX: F03.90 Unspecified dementia, unspecified severity, without behavioral disturbance, psychotic disturbance, mood disturbance, and anxiety (principal)
CPT/HCPCS: 80048

== ENCOUNTER 2024-05-13 08:00 | Outpatient (CLI) | payer MEDICARE, MEDICAID ==
[2024-05-13 18:27] LABS: ALBUMIN 3.3 g/dL (3.2-5.5); ALBUMIN/GLOBULIN RATIO 1.4 (1.0-2.2); BILIRUBIN,TOTAL 0.4 mg/dL (0.2-1.0); CALCIUM 8.6 mg/dL (8.5-10.3); CREATININE 0.7 mg/dL (0.6-1.3); POTASSIUM 4.2 mmol/L (3.5-4.5); TOTAL PROTEIN 5.7 g/dL (6.4-8.9)
== END 2024-05-13 23:59 | disposition home or self-care (01) ==
LOC: LAB.R 08:00
PROVIDERS: ATTEND Family Medicine
DX: I10 Essential (primary) hypertension (principal); I48.20 Chronic atrial fibrillation, unspecified
CPT/HCPCS: 80053; 85025

== ENCOUNTER 2024-05-14 10:00 | Outpatient (CLI) | payer MEDICARE, MEDICAID ==
--- NOTE | 2024-05-14 16:06 | XRAY Report ---
PROCEDURE: Chest 2V INDICATIONS: SHORTNESS OF BREATH TECHNIQUE: 2 views of the chest were obtained. COMPARISON: None. FINDINGS: Surgical changes and devices: None. Lungs and pleura: Low lung volumes accentuate pulmonary interstitium and heart size. Atherosclerotic vascular calcification noted in the aortic arch. Mediastinum: Mediastinal contours appear normal. Heart size is normal. Bones and chest wall: Generalized decreased osseous mineralization present. Old healed right-sided r ib fractures IMPRESSION: No acute cardiopulmonary findings. The lung volumes accentuates pulmonary interstitium Reviewed by: Didier Tao MD on 05/14/2024 3:05 PM JUNA Approved by: Didier Tao MD on 05/14/2024 3:05 PM JUAN Station ID: [id number]
== END 2024-05-14 10:01 | disposition home or self-care (01) ==
LOC: DI 10:00
PROVIDERS: ATTEND Family Medicine
DX: R06.02 Shortness of breath (principal)